=== PATIENT | male | born 2000 | race Caucasian/White ===

== ENCOUNTER 2024-01-13 14:25 | Outpatient (CLI) | payer OTHER, SELFPAY ==
--- NOTE | ~2024-01-13 | US_ITS ---
EXAMINATION: US scrotum doppler DATE: 01/13/2024 14:58 INDICATION: SCROTAL PAIN/VARICOCELE . TECHNIQUE: Grayscale and Doppler ultrasound images of the testes were obtained. COMPARISON: None. FINDINGS: The right testis measures 3.3 x 2.1 x 2.1 cm. The left testis measures 3.3 x 2.4 x 2.0 cm. No testicular mass. There is normal vascular flow to both testes. The right epididymis is normal with normal vascular flow. The left epididymis is normal with normal vascular flow. No hydrocele. Left va ricocele. IMPRESSION: Left varicocele. Reviewed, dictated and finalized at location K. IMPRESSION: Left varicocele.
== END 2024-01-13 14:26 | disposition home or self-care (01) ==
LOC: CHSIMG 14:27
PROVIDERS: PCP Family Medicine; Visit Provider Urology
DX: N50.82 Scrotal pain (principal); I86.1 Scrotal varices
CPT/HCPCS: 76870; 93976